=== PATIENT | female | born 1945 | race Two or more races ===

== ENCOUNTER 2022-03-19 13:01 | Inpatient (IN) | payer BC, OTHER ==
[~2022-03-19] VITALS: Ht 152.4 cm; Wt 61.9 kg
[2022-03-19 14:28] LABS: Basophils # (auto) 0 10 ^3/uL (0-0.2); Eosinophils # (auto) 0.1 10 ^3/uL (0-0.8); Red Cell Distribution Width 19.3 % (11.8-14.3)
[2022-03-19 14:30] LABS: Basophils % (auto) 0.7 % (0.0-2.0); Eosinophils % (auto) 1.3 % (0.0-7.0); Hematocrit 33.6 % (36.0-46.0); Hemoglobin 10.8 g/dL (12.2-16.2); Lymphocytes # (auto) 1.6 10 ^3/uL (0.4-5.4); Lymphocytes % (auto) 23.5 % (10.0-50.0); Mean Corpuscular Hemoglobin 22.7 pg (28.0-32.0); Mean Corpuscular Hgb Conc. 32.2 g/dL (32.0-36.0); Mean Corpuscular Volume 70.2 fL (80.0-100.0); Monocytes # (auto) 0.4 10 ^3/uL (0-1.3); Monocytes % (auto) 6.2 % (0.0-12.0); Neutrophils # (auto) 4.8 10 ^3/uL (1.6-8.6); Neutrophils % (auto) 68.3 % (37.0-80.0); Red Blood Cells 4.78 10^6/uL (4.0-5.20)
[2022-03-19 14:45] LABS: Albumin 3.3 g/dL (3.4-5.0); Calcium 8.3 mg/dL (8.5-10.1); Potassium 3.5 mmol/L (3.5-5.1)
[2022-03-19 14:50] LABS: BUN/Creatinine Ratio 11.7; Bilirubin, Total 0.6 mg/dL (0.2-1.0); CRP High Sensitivity 0.09 mg/dL (< 0.3); Total Protein 7.7 g/dL (6.4-8.2)
[2022-03-19] MEDS ORDERED: ASPirin 325 MG TAB PO ONE (15:15)
[2022-03-19] MEDS ORDERED: NITROGLYCERIN 0.4 MG SL TAB SL PRN ×2 (18:00→21:00)
[2022-03-19] MEDS ORDERED: MORPHINE SULFATE INJECTION 2 MG/ML SYRG IV PRN ×3 (18:00→21:00)
[2022-03-19] MEDS ORDERED: LABETALOL HCL 5 MG/ML 4ML SYRINGE IV ONE (18:15)
[2022-03-19 19:13] LABS: Urine Bacteria NONE SEEN /hpf (None Seen); Urine Blood Negative /uL (Negative); Urine Specific Gravity 1.006 (1.001-1.035); Urine WBC <1 /hpf (0 - 5)
[2022-03-19] MEDS ORDERED: HYDROcodone-ACET 5/325MG TAB PO PRN (21:00)
[2022-03-19] MEDS ORDERED: DOCUSATE SOD 100 MG CAP PO PRN (21:00)
[2022-03-19] MEDS ORDERED: ONDANSETRON HCL 4 MG/2 ML VIAL IV PRN (21:00)
[2022-03-19] MEDS ORDERED: LORazepam 0.5 MG TAB PO PRN (21:00)
[2022-03-19] MEDS ORDERED: hydrALAZINE HCL 20 MG/ML VL IV PRN (21:00)
[2022-03-19] MEDS ORDERED: ACETAMINOPHEN 325 MG TAB PO PRN (21:00)
[2022-03-19 21:57] LABS: Magnesium 1.8 mg/dL (1.6-2.6); Phosphorus 2.2 mg/dL (2.5-4.90)
[2022-03-19 22:26] VITALS: BP 148/63
[2022-03-20 01:01] LABS: INR 1.04 (0.9-1.15); Partial Thromboplastin Time 28.3 sec (23.6-33.0)
[2022-03-20 05:00] VITALS: BP 105/63
[2022-03-20] MEDS ORDERED: MAGNESIUM SULFATE 1GM/100ML 100 ML IV ONE (07:00)
[2022-03-20] MEDS ORDERED: NEUTRA-PHOS TABLET PO ONE (07:00)
[2022-03-20] MEDS ORDERED: HCTZ 25 MG TAB PO ONE (07:15)
[2022-03-20] MEDS ORDERED: BENAZEPRIL HCL 10 MG TAB PO ONE (07:15)
[2022-03-20] MEDS ORDERED: DEXTROSE (50%) 50ML SYRG IV PRN (07:15)
[2022-03-20 07:54] LABS: Basophils # (auto) 0.1 10 ^3/uL (0-0.2); Eosinophils # (auto) 0.1 10 ^3/uL (0-0.8); Lymphocytes # (auto) 1.7 10 ^3/uL (0.4-5.4); Monocytes # (auto) 0.5 10 ^3/uL (0-1.3)
[2022-03-20 07:58] LABS: Basophils % (auto) 0.8 % (0.0-2.0); Eosinophils % (auto) 1.9 % (0.0-7.0); Hematocrit 33.1 % (36.0-46.0); Hemoglobin 10.7 g/dL (12.2-16.2); Lymphocytes % (auto) 25.7 % (10.0-50.0); Mean Corpuscular Hemoglobin 22.9 pg (28.0-32.0); Mean Corpuscular Hgb Conc. 32.4 g/dL (32.0-36.0); Mean Corpuscular Volume 70.6 fL (80.0-100.0); Monocytes % (auto) 7.6 % (0.0-12.0); Neutrophils # (auto) 4.3 10 ^3/uL (1.6-8.6); Nucleated Red Blood Cells % 0.2 %; Red Blood Cells 4.69 10^6/uL (4.0-5.20); Red Cell Distribution Width 19.7 % (11.8-14.3); White Blood Cell 6.8 10^3/uL (4.4-10.8)
[2022-03-20] MEDS ORDERED: NEUTRA-PHOS TABLET PO SCH (08:00)
[2022-03-20 08:15] LABS: INR 1.05 (0.9-1.15); Partial Thromboplastin Time 28.2 sec (23.6-33.0)
[2022-03-20 08:20] LABS: BUN/Creatinine Ratio 21.1; Bilirubin, Total 0.8 mg/dL (0.2-1.0); CRP High Sensitivity 0.1 mg/dL (< 0.3); Calcium 8.4 mg/dL (8.5-10.1); Magnesium 2.4 mg/dL (1.6-2.6); Phosphorus 3.8 mg/dL (2.5-4.90); Uric Acid 5.3 mg/dL (2.6-6.0)
[2022-03-20 08:30] VITALS: BP 124/61
[2022-03-20 09:00] VITALS: BP 124/61
[2022-03-20] MEDS ORDERED: SIMV10TA84 PO (09:33)
[2022-03-20] MEDS ORDERED: METF-370 PO (09:33)
[2022-03-20] MEDS ORDERED: NAP500T PO (09:33)
[2022-03-20] MEDS ORDERED: LISI40TA11 PO (09:33)
[2022-03-20] MEDS ORDERED: HYDR25TA5 PO (09:33)
[2022-03-20] MEDS ORDERED: ASPI81CH74 PO (09:34)
[2022-03-20] MEDS: ENOXAPARIN SOD 40 MG/0.4 ML SYRINGE SC SCH (09:37)
[2022-03-20] MEDS: ASPirin 81 mg TAB PO SCH (09:37)
[2022-03-20] MEDS: InsuLIN REG 1unit/0.01ml Soln (100units/ml) SC SCH ×3 (11:30→22:00)
[2022-03-20] MEDS: ACCU-CHEK COMFORT CURVE STRIP VI SCH ×3 (12:00→21:33)
[2022-03-20 13:00] VITALS: BP 149/60
[2022-03-20 15:19] LABS: Alcohol, Urine < 3.0 mg/dL (0-10); Amphetamine Screen, Urine NEGATIVE (NEGATIVE); Barbiturate Scree,Urine NEGATIVE (NEGATIVE); Benzodiazephine Screen, Urine NEGATIVE (NEGATIVE); Cannabinoid Screen, Urine NEGATIVE (NEGATIVE); Cocaine Screen, Urine NEGATIVE (NEGATIVE); Opiate Scree,Urine NEGATIVE (NEGATIVE); Phencyclidine Screen, Urine NEGATIVE (NEGATIVE); Protein, Urine 7.1 mg/dL (0.0-11.9)
[2022-03-20 17:00] VITALS: BP 148/56
[2022-03-20 22:00] VITALS: BP 137/58
[2022-03-20] MEDS ORDERED: ATORVASTATIN 20 MG TAB PO SCH (22:00)
[2022-03-21 05:00] VITALS: BP 131/67
[2022-03-21] MEDS: ACCU-CHEK COMFORT CURVE STRIP VI SCH ×2 (06:28→12:00)
[2022-03-21] MEDS: InsuLIN REG 1unit/0.01ml Soln (100units/ml) SC SCH ×2 (06:40→11:30)
[2022-03-21 07:12] LABS: Basophils # (auto) 0.1 10 ^3/uL (0-0.2); Eosinophils # (auto) 0.2 10 ^3/uL (0-0.8); Lymphocytes # (auto) 1.9 10 ^3/uL (0.4-5.4); Lymphocytes % (auto) 28.7 % (10.0-50.0)
[2022-03-21 07:14] LABS: Basophils % (auto) 1.1 % (0.0-2.0); Eosinophils % (auto) 2.5 % (0.0-7.0); Hematocrit 32.3 % (36.0-46.0); Hemoglobin 10.6 g/dL (12.2-16.2); Mean Corpuscular Hgb Conc. 32.8 g/dL (32.0-36.0); Monocytes # (auto) 0.6 10 ^3/uL (0-1.3); Monocytes % (auto) 8.9 % (0.0-12.0); Neutrophils # (auto) 3.9 10 ^3/uL (1.6-8.6); Neutrophils % (auto) 58.8 % (37.0-80.0); Red Blood Cells 4.62 10^6/uL (4.0-5.20); White Blood Cell 6.6 10^3/uL (4.4-10.8)
[2022-03-21 07:32] LABS: Albumin 2.9 g/dL (3.4-5.0); Calcium 8.5 mg/dL (8.5-10.1); Magnesium 2.2 mg/dL (1.6-2.6); Potassium 3.8 mmol/L (3.5-5.1)
[2022-03-21 07:36] LABS: Bilirubin, Total 0.6 mg/dL (0.2-1.0); Phosphorus 3.7 mg/dL (2.5-4.90); Total Protein 7.1 g/dL (6.4-8.2)
[2022-03-21 07:37] LABS: INR 1.03 (0.9-1.15); Partial Thromboplastin Time 27.6 sec (23.6-33.0)
[2022-03-21 09:00] VITALS: BP 164/85
[2022-03-21] MEDS: ASPirin 81 mg TAB PO SCH (09:30)
[2022-03-21] MEDS: ENOXAPARIN SOD 40 MG/0.4 ML SYRINGE SC SCH (09:32)
[2022-03-21] MEDS ORDERED: HCTZ 25 MG TAB PO SCH (10:00)
[2022-03-21] MEDS ORDERED: BENAZEPRIL HCL 10 MG TAB PO SCH ×2 (10:00)
[2022-03-21] MEDS ORDERED: GABAPENTIN 300 MG CAP PO ONE (14:15)
[2022-03-21] MEDS ORDERED: ASPI81CH74 PO (14:32)
[2022-03-21] MEDS ORDERED: GABA300C10 PO (14:32)
[2022-03-21] MEDS ORDERED: SIMV10TA84 PO (14:32)
[2022-03-21 14:57] VITALS: BP 153/71
[2022-03-21] MEDS ORDERED: GABAPENTIN 300 MG CAP PO SCH (22:00)
== END 2022-03-21 15:30 | disposition home or self-care (01) | DRG 305 ==
LOC: ER 13:01 → TELE 20:55 → TELE-WESTW 22:27
PROVIDERS: ADMIT Hospitalist; ATTEND Hospitalist
DX: I16.9 Hypertensive crisis, unspecified (principal); M79.601 Pain in right arm; R51.9 Headache, unspecified; R00.1 Bradycardia, unspecified; E11.40 Type 2 diabetes mellitus with diabetic neuropathy, unspecified; E88.09 Other disorders of plasma-protein metabolism, not elsewhere classified; E83.42 Hypomagnesemia; E83.39 Other disorders of phosphorus metabolism; K21.9 Gastro-esophageal reflux disease without esophagitis; I25.10 Atherosclerotic heart disease of native coronary artery without angina pectoris; E66.9 Obesity, unspecified; E78.5 Hyperlipidemia, unspecified; Z79.84 Long term (current) use of oral hypoglycemic drugs; Z83.3 Family history of diabetes mellitus; Z86.73 Personal history of transient ischemic attack (TIA), and cerebral infarction without residual deficits; M79.604 Pain in right leg; Z20.822 Contact with and (suspected) exposure to COVID-19
CPT/HCPCS: 36415; 70450; 70545; 70551; 71045; 80053; 80061; 80307; 81001; 82550; 82553; 82728; 82962; 83036; 83615; 83690; 83735; 83880; 84100; 84156; 84443; 84484; 84550; 85025; 85379; 85610; 85652; 85730; 86141; 87040; 87086; 93005; 93306; 93971; 96374; G0378; J3490

== ENCOUNTER 2024-01-23 14:08 | Emergency (ER) | payer BC, OTHER ==
[~2024-01-23] VITALS: Ht 152.4 cm; Wt 57.4 kg
[~2024-01-23 14:08] MED LIST: ASPI81CH74 PO; GABA-1250 PO; HYDR25TA5 PO; LISI40TA16 PO; METF-370 PO; SIMV10TA20 PO
[2024-01-23 16:08] LABS: Basophils # (auto) 0.1 10 ^3/uL (0-0.2); Basophils % (auto) 0.8 % (0.0-2.0); Eosinophils # (auto) 0.1 10 ^3/uL (0-0.8); Lymphocytes # (auto) 1.8 10 ^3/uL (0.4-5.4); Mean Corpuscular Hemoglobin 20.3 pg (28.0-32.0); Monocytes # (auto) 0.5 10 ^3/uL (0-1.3)
[2024-01-23 16:09] LABS: Eosinophils % (auto) 1.3 % (0.0-7.0); Hematocrit 30.4 % (36.0-46.0); Hemoglobin 9.6 g/dL (12.2-16.2); Lymphocytes % (auto) 25.5 % (10.0-50.0); Mean Corpuscular Hgb Conc. 31.7 g/dL (32.0-36.0); Mean Corpuscular Volume 64.2 fL (80.0-100.0); Monocytes % (auto) 6.5 % (0.0-12.0); Neutrophils # (auto) 4.8 10 ^3/uL (1.6-8.6); Neutrophils % (auto) 65.9 % (37.0-80.0); Nucleated Red Blood Cells % 0.1 %; Red Blood Cells 4.73 10^6/uL (4.0-5.20); White Blood Cell 7.3 10^3/uL (4.4-10.8)
[2024-01-23 16:22] LABS: Chloride 105 mmol/L (98-107); Potassium 3.3 mmol/L (3.5-5.1); Sodium 140 mmol/L (136-145)
[2024-01-23 16:23] LABS: Anion Gap 5 (5-15); Carbon Dioxide 30 mmol/L (20-30)
[2024-01-23 16:24] LABS: Calcium 9.1 mg/dL (8.5-10.1)
[2024-01-23 16:28] LABS: BUN/Creatinine Ratio 11.8 (10.0-20.0); Blood Urea Nitrogen 8 mg/dL (9-23); Glucose 104 mg/dL (74-106)
[2024-01-23 16:37] LABS: Urine Bacteria NONE SEEN /hpf (None Seen); Urine Blood Negative /uL (Negative); Urine Clarity Clear (Clear); Urine Color Colorless (Yellow); Urine Protein, UAD Negative (Negative); Urine Specific Gravity 1.005 (1.001-1.035); Urine Urobilinogen Normal (Negative); Urine WBC <1 /hpf (0 - 5)
[2024-01-23 17:41] VITALS: BP 154/71; PULSE 63; RESP 17; TEMP 98.1; O2SAT 95
[2024-01-23] MEDS ORDERED: POTASSIUM EFFERVESENT TAB 25 MEQ PO ONE (17:45)
== END 2024-01-23 17:43 | disposition home or self-care (01) ==
LOC: ER 14:08
DX: R20.0 Anesthesia of skin (principal); R42 Dizziness and giddiness; I10 Essential (primary) hypertension; F17.210 Nicotine dependence, cigarettes, uncomplicated; Z86.73 Personal history of transient ischemic attack (TIA), and cerebral infarction without residual deficits
CPT/HCPCS: 36415; 70450; 80048; 81001; 82962; 85025; 93005